=== PATIENT | male | born 1995 | race Hispanic/Latino ===

== ENCOUNTER 2023-08-14 15:25 | Emergency (ER) | payer SELFPAY ==
[2023-08-14 15:29] VITALS: BP 147/93
--- NOTE | 2023-08-14 16:29 | EDRN ---
Hannah ODOM in room w/pt at this time.
--- NOTE | 2023-08-14 16:43 | ED.GENMED ---
History of Present Illness
General
Chief Complaint: Eye Problems
Source: patient and spouse
Exam Limitations: none
Time Seen by Provider: 08/14/23 15:53
Nursing documentation reviewed up to this point in time: agreed with
Travel History
Have you had any contact with someone who has COVID-19?: No
Do you have any symptoms of coronavirus? Fever > 100 degrees, chills, cough, shortness of breath, sore throat, loss of taste or smell, muscle aches, or headache?: No
History of Present Illness
History of Present Illness:
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 Discomfort and irritation since. Denies significant changes in
vision recent illness fevers or significant discharge.
Review of Systems
Review of Systems
Allergies reviewed?: Yes
All Other Systems: ROS reviewed and negative except as documented in HPI and ROS
Phy Exam
Physical Exam
Physical Exam:
GENERAL: Alert , in no apparent distress
EYE: Pinpoint sized foreign body to the 12:00 portion of the cornea. Pupils equal and reactive
NECK: Supple, no significant adenopathy.
ENT: o/p clr, mmm.
CARDIAC: Regular rate and rhythm .
LUNGS: Clear breath sounds bilaterally, no acute respiratory distress, no wheezes/rales/rhonchi
ABDOMEN: Soft, without focal tenderness, no r/g, no cvat
NEUROLOGICAL: Alert and oriented, no focal neuro deficits
SKIN: Warm and dry, skin intact.
MUSCULOSKELETAL: No edema, well perfused.
PSYCH: Normal and appropriate interaction.
Course
Vital Signs
Initial and Last Documented VS:
Initial Vital Signs
Temp Pulse Resp BP Pulse Ox
98.4 F 79 19 147/93 98
08/14/23 15:29 08/14/23 15:29 08/14/23 15:29 08/14/23 15:29 08/14/23 15:29
Last Documented Vital Signs
Temp Pulse Resp BP Pulse Ox
98.4 F 82 14 132/84 100
08/14/23 15:29 08/14/23 16:53 08/14/23 16:53 08/14/23 16:53 08/14/23 16:53
Procedures
Eye Procedures
Anesthesia: other (Tetracaine)
Conjuctival foreign body removal was superficial- removed by: not done (Foreign body removal with 22-gauge needle)
Removal of corneal foreign body with: slit lamp and simple removal
Foreign body removal was: incomplete (Rust ring remained)
After removal was there a corneal abrasion?: corneal abrasion present and corneal injury
MDM/Problems Addressed
MDM/Problems Addressed:
27-year-old male presenting to the emergency department today with concerns of irritation to his right eye since doing landscaping 2 days ago. No change in vision no additional symptoms otherwise. On physical examination patient has a pinpoint
sized foreign body to his stopcock portion of the cornea. No pupil involvement. Slit-lamp was used and foreign body removed with 22-gauge needle. Patient tolerated well. Rust ring remained Case discussed with ophthalmology and will follow-up
closely this week. Return precautions given. Patient given antibiotic ointment and drops.
*Critical Care Note
Total Time (30-74mins, 75-104mins- exclusive of procedures): Not Applicable
ED Attending Note
-
Portions of this chart may have been created with voice recognition software.� Occasional wrong word or��sound alike� substitutions may have occurred due to the inherent limitations of voice recognition software.
Discharge Plan
Departure
Patient Disposition: Home (Routine Discharge)
Date of Disposition: 08/14/23
Time of Disposition: 16:46
Patient with high blood pressure during this ER visit?: No
Condition: Good
Covid-19: Not Applicable
Discharge Problem:
Acute foreign body of cornea
Instructions: Foreign Body in Eye (DC)
Prescriptions:
New
erythromycin 5 mg/gram (0.5 %) ointment
1 applic ophthalmic (eye) DAILY Qty: 3.5 0RF
ofloxacin 0.3 % drops
1 drp ophthalmic (eye) Q6H 5 Days Qty: 5 0RF
Referrals:
Chris Kent MD [Active] - Follow up in 2-3 days
NONE,* [Family Provider] -
Activity Restrictions/Additional Instructions:
You came to the emergency department today with concerns of foreign body to right eye. This was removed but there is some rust staining. This will need close follow-up with an eye doctor for complete removal. Otherwise use the prescribed eye
antibiotics to reduce any risk of infection. Return to the emergency department for any worsening, new or concerning symptoms.
Interventions
Interventions:
*Risk Screen - Suicide Last Done: 08/14/23 15:27
*General Assessment Last Done: 08/14/23 15:27
*Neglect/Abuse Screening Last Done: 08/14/23 15:27
Discharge Date and Time
Print Language: STATELESS
[2023-08-14 16:53] VITALS: BP 132/84
[2023-08-14] MEDS: ERYTHROMYCIN 0.5% OPHTHALMIC OINTMENT 1 APPLIC OPHTH (17:12)
== END 2023-08-14 17:21 | disposition home or self-care (01) ==
LOC: EMR 15:25
PROVIDERS: EMERGENCY PHYSICIAN Emergency Medicine
DX: T15.01XA Foreign body in cornea, right eye, initial encounter (principal); W44.9XXA Unspecified foreign body entering into or through a natural orifice, initial encounter
CPT/HCPCS: 99282; 65205

== ENCOUNTER 2024-02-15 22:56 | Emergency (ER) | payer SELFPAY ==
[2024-02-15 22:59] VITALS: BP 147/101
--- NOTE | 2024-02-15 23:58 | ED.GENMED ---
History of Present Illness
General
Chief Complaint: Eye Problems
Source: patient
Time Seen by Provider: 02/15/24 23:12
History of Present Illness
History of Present Illness:
28-year-old male presents to the emergency room complaining of pain in his left thigh. 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 Patient has pain and blurred vision. No other
complaints. He does not wear contact lenses.
Phy Exam
Physical Exam
Physical Exam:
General: Awake, Alert, Oriented X3. No acute distress.
Vitals: unremarkable
Head: Atraumatic
Eyes: Pupils equal, EOMI, injection of the left sclera. There is a foreign body noted at about the 5 PM location over the iris.
Throat: Airway intact, no exudates
Neck: Trachea midline
Neuro: Nonfocal
Skin: Warm, dry, no rash
Course
Orders/Labs/Results
Orders:
Orders
02/15/24 23:35
Tetracaine HCl [Tetracaine 0.5% Ophthalmic Solution] 1 drop .ROUTE .[facility]
02/15/24 23:58
Ciprofloxacin HCl [Ciloxan 0.3% Ophthalmic Solution] See Dose Instructions OPHTH NOW STA
Vital Signs
Initial and Last Documented VS:
Initial Vital Signs
Temp Pulse Resp BP Pulse Ox
98.4 F 95 16 147/101 97
02/15/24 22:59 02/15/24 22:59 02/15/24 22:59 02/15/24 22:59 02/15/24 22:59
Last Documented Vital Signs
Temp Pulse Resp BP Pulse Ox
98.4 F 95 18 134/93 96
02/15/24 22:59 02/16/24 00:20 02/16/24 00:20 02/16/24 00:20 02/16/24 00:20
Procedures
Eye Procedures
Anesthesia: other (Tetracaine)
Conjuctival foreign body removal was superficial- removed by: scraping
Removal of corneal foreign body with: direct visualization, slit lamp and corneal scraping
Foreign body removal was: other (Foreign body itself removed but there appears to be staining of the cornea)
MDM/Problems Addressed
Differential Diagnosis Includes:
Left eye foreign body, corneal abrasion, iritis
MDM/Problems Addressed:
Patient presents with a foreign body in the left cornea. Initial attempts made to remove the foreign body with a cotton-tipped applicator. This was unsuccessful. Next a 25-gauge needle was used to gently scrape the foreign body over the cornea.
Slit-lamp exam after the foreign body was removed shows some staining of the cornea. Patient will be started on Cipro eyedrops. I have given him contact information of follow-up with ophthalmology asked him to call first thing in the morning for
an appointment in the next 1 to 2 days.
*Pulse Oximetry
Patient hypoxic: no
*Critical Care Note
Total Time (30-74mins, 75-104mins- exclusive of procedures): Not Applicable
ED Attending Note
-
Portions of this chart may have been created with voice recognition software.� Occasional wrong word or��sound alike� substitutions may have occurred due to the inherent limitations of voice recognition software.
Discharge Plan
Departure
Patient Disposition: Home (Routine Discharge)
Date of Disposition: 02/16/24
Time of Disposition: 00:01
Patient with high blood pressure during this ER visit?: No
Condition: Good
Discharge Problem:
Corneal foreign body with residual material
Instructions: How to Use Eye Drops, Foreign Body in Eye (DC)
Prescriptions:
No Action
No Current Medications
0
Referrals:
UNKNOWN - PT DOES,NOT KNOW [Family Provider] -
Radha Heard MD [Active] -
Activity Restrictions/Additional Instructions:
Please call the eye doctor's office in the morning to make an appointment to be seen. Let them know you were seen in the [place] ER and the ER doctor wanted you to be seen in the next 1 to 2 days. You should put two drops of the antibiotic eye
drops in the left eye four times a day.
Interventions
Interventions:
*Risk Screen - Suicide Last Done: 02/15/24 22:59
*General Assessment Last Done: 02/15/24 23:23
*Neglect/Abuse Screening Last Done: 02/15/24 22:59
*ED COVID-19 Vaccine History Last Done: 02/15/24 22:59
*Nursing Disposition Last Done: 02/16/24 00:20
Discharge Date and Time
Print Language: TAJIK
[2024-02-16 00:20] VITALS: BP 134/93
[2024-02-16] MEDS: CILOXAN 0.3% OPHTHALMIC SOLUTION 2 DROP OPHTH (01:11)
== END 2024-02-16 01:13 | disposition home or self-care (01) ==
LOC: EMR 22:56
PROVIDERS: EMERGENCY PHYSICIAN Emergency Medicine
DX: T15.02XA Foreign body in cornea, left eye, initial encounter (principal); W44.9XXA Unspecified foreign body entering into or through a natural orifice, initial encounter; Y99.0 Civilian activity done for income or pay
CPT/HCPCS: 65222; 99283